=== PATIENT | male | born 1975 | race Two or more races ===

== ENCOUNTER 2024-08-30 14:01 | Emergency (ER) | payer BC, SELFPAY ==
[~2024-08-30] VITALS: Ht 185.4 cm; Wt 107.0 kg
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
[2024-08-30 16:01] VITALS: BP 141/92; PULSE 79; RESP 18; TEMP 98.1; O2SAT 95
[2024-08-30] MEDS: LIDOCAINE 1% HCL (LOCAL ANESTH.) INJ 20ML MDV ID ONE (16:04)
== END 2024-08-30 16:26 | disposition home or self-care (01) ==
LOC: EDBD 14:01 → ER 14:01
DX: S51.811A Laceration without foreign body of right forearm, initial encounter (principal); S31.139A Puncture wound of abdominal wall without foreign body, unspecified quadrant without penetration into peritoneal cavity, initial encounter; S51.801A Unspecified open wound of right forearm, initial encounter; W34.00XA Accidental discharge from unspecified firearms or gun, initial encounter; Y93.89 Activity, other specified; Y92.89 Other specified places as the place of occurrence of the external cause; Y99.8 Other external cause status
CPT/HCPCS: 12002; 73090; 74176